=== PATIENT | male | born 1945 | race Caucasian/White ===

== ENCOUNTER → 2025-03-24 09:57 | Outpatient (REF) | payer OTHER, MEDICARE, SELFPAY ==
[2025-03-24 11:10] LABS: Hematocrit 24.6 % (39.0-52.0); Hemoglobin 7.8 g/dL (13.0-18.0); Mean Corp Hgb Conc. 31.7 g/dL (33.0-37.0); Mean Corpuscular Volume 104.7 fL (80.0-94.0); Platelet Count 257 10^3/uL (130-400); Red Cell Dist. Width 14.6 % (11.5-14.5)
[2025-03-24 11:53] LABS: ALT (SGPT) 16 U/L (0-50); AST (SGOT) 28 U/L (17-59); Albumin 1.7 g/dl (3.5-5.0); Alkaline Phosphatase 117 U/L (38-126); Blood Urea Nitrogen 9 mg/dl (9-20); Calcium 7.5 mg/dl (8.4-10.2); Carbon Dioxide 25 mmol/L (22-30); Chloride 106 mmol/L (98-107); Glucose 70 mg/dl (70-99); Potassium 4.1 mmol/L (3.5-5.1); Sodium 131 mmol/L (135-145); Total Protein 4.5 g/dl (6.3-8.2); eGFR > 60.00
[2025-03-24 16:29] LABS: Magnesium 1.7 mg/dl (1.6-2.3)
== END ==
LOC: OLABWHC 09:57
PROVIDERS: ATTENDING PHYSICIAN Family Medicine
DX: G93.41 Metabolic encephalopathy (principal); E83.42 Hypomagnesemia
CPT/HCPCS: 36415; 80053; 83735; 85027

== ENCOUNTER 2025-03-24 23:51 | Emergency (ER) | payer MEDICARE, SELFPAY ==
--- NOTE | 2025-03-25 00:42 | ED.GENMED ---
History of Present Illness
General
Chief Complaint: Catheter/Tube Problem
Source: patient and skilled nursing
Exam Limitations: dementia
Time Seen by Provider: 03/25/25 00:00
Nursing documentation reviewed up to this point in time: agreed with
History of Present Illness
History of Present Illness:
80-year-old male past medical history of dementia, hypertension lipidemia chronic urinary retention with chronic Hammer in place presenting to the emergency department today after his Hammer was pulled out of place. He denies any additional concerns.
No additional concerns specifically from the nursing facility.
Review of Systems
Review of Systems
Allergies reviewed?: Yes
All Other Systems: ROS reviewed and negative except as documented in HPI and ROS
Phy Exam
Physical Exam
Physical Exam:
GENERAL: Alert , in no apparent distress
EYE: Normal appearance of the eyes.
NECK: No visible abnormality, trachea midline
ENT: No visible abnormalities mmm.
LUNGS: no acute respiratory distress
Abdomen: No pain to palpation
NEUROLOGICAL: Alert and oriented, no focal neuro deficits
SKIN: Warm and dry, skin intact.
MUSCULOSKELETAL: Moving all extremities normally
Course
Orders/Labs/Results
Orders:
Orders
03/25/25 00:19
Lidocaine 2% [Lidocaine Uro-Jet 2%] 1 syringe .ROUTE .[facility]
Vital Signs
Initial and Last Documented VS:
Initial Vital Signs
Temp Pulse Resp Pulse Ox
98.0 F 102 20 95
03/24/25 23:54 03/24/25 23:54 03/24/25 23:54 03/24/25 23:54
Last Documented Vital Signs
Temp Pulse Resp Pulse Ox
98.0 F 102 20 95
03/24/25 23:54 03/24/25 23:54 03/24/25 23:54 03/25/25 00:43
Procedures
Urinary Catheter
Procedure completed by: Myself
Type of urinary catheter: indwelling catheter
Catheter size (vietnamese): 14
Urine description: yellow
Urine output (ml): 200
MDM/Problems Addressed
MDM/Problems Addressed:
80-year-old male presenting to the emergency department after pulling out his chronic Hammer catheter at his nursing facility. He denies any additional concerns. This was reinserted here. Patient stable for discharge.
*Pulse Oximetry
SaO2: 95
Oxygen Mode of Delivery: Room air
Patient hypoxic: no (95)
*Critical Care Note
Total Time (30-74mins, 75-104mins- exclusive of procedures): Not Applicable
ED Attending Note
-
Portions of this chart may have been created with voice recognition software.� Occasional wrong word or��sound alike� substitutions may have occurred due to the inherent limitations of voice recognition software.
Discharge Plan
Departure
Patient Disposition: Group Home/SNF
Date of Disposition: 03/25/25
Time of Disposition: 01:04
Condition: Good
Covid-19: Not Applicable
Discharge Problem:
Dislodged Hammer catheter
Instructions: How to Care for Your Hammer Catheter, Male
Referrals:
Alin Felipe MD [Family Provider, Family Practice]
Activity Restrictions/Additional Instructions:
You came to the emergency department today after your Hammer catheter dislodged. This was replaced. Please follow closely with urology. Return for any worsening, new or concerning symptoms.
Interventions
Interventions:
*Risk Screen - Suicide Last Done: 03/25/25 00:02
*General Assessment Last Done: 03/25/25 00:02
*Neglect/Abuse Screening Last Done: 03/25/25 00:02
*ED- Fall Risk Assessment Last Done: 03/25/25 00:02
*ED COVID-19 Vaccine History Last Done: 03/25/25 00:02
Discharge Date and Time
Print Language: MACEDONIAN
[2025-03-25 01:13] VITALS: BP 126/92
== END 2025-03-25 03:28 ==
LOC: EMR 23:51
PROVIDERS: EMERGENCY PHYSICIAN Student in an Organized Health Care Education/Training Program; FAMILY PHYSICIAN Family Medicine
DX: T83.021A Displacement of indwelling urethral catheter, initial encounter (principal); X58.XXXA Exposure to other specified factors, initial encounter; F03.90 Unspecified dementia, unspecified severity, without behavioral disturbance, psychotic disturbance, mood disturbance, and anxiety; I10 Essential (primary) hypertension; E78.5 Hyperlipidemia, unspecified
CPT/HCPCS: 51702; 99283

== ENCOUNTER 2025-03-28 22:26 | Emergency (ER) | payer MEDICARE, SELFPAY ==
[2025-03-28 22:37] VITALS: BP 124/74
[2025-03-29 00:14] VITALS: BP 115/70
--- NOTE | 2025-03-29 00:31 | ED.GENMED ---
History of Present Illness
General
Chief Complaint: Catheter/Tube Problem
Source: patient and family
Exam Limitations: none
Time Seen by Provider: 03/29/25 00:03
History of Present Illness
History of Present Illness:
Patient slid out of a chair catching his catheter. The Hammer out. History of chronic Hammer placement. Some increased right knee pain. Is in rehabitation for the same. No other trauma. No head injury.
Past History
Past History
ED Past Medical History: HTN, Hypercholesterolemia and Other (Metabolic encephalopathy)
Review of Systems
Review of Systems
All Other Systems: Not applicable
Phy Exam
Physical Exam
Physical Exam:
TRAUMA EXAM:
VITAL SIGNS: Vital signs reviewed, cooperative
DISTRESS: No active disease
EYES: Pupils reactive, no orbital trauma
NOSE: No deformity or epistaxis
FACE AND SCALP: No scalp or facial trauma
NECK: Supple nontender
RESPIRATORY: No distress, breath sounds normal, no tender chest wall
: Small amount of blood from the urethra. Some scrotal edema
CARDIAC: No murmur, pulses equal and strong
SKIN: Skin intact no bleeding, color normal
EXTREMITIES: Mild tenderness to right knee and distal femur. No pain with hip rotation. All other extremities negative. Edema to the hands and legs chronically.
NEUROLOGICAL: Alert, oriented, no motor deficits
PSYCH: Mood affect normal
Course
Orders/Labs/Results
Orders:
Orders
03/29/25 00:30
Hammer Placement- Treatment ONCE
Reason for insertion: Chronic Hammer on Admit
Femur, Right 2 View [CR Femur - Right Min 2 Vw] Urgent
Comment:
Reason For Exam: Trauma
Vital Signs
Initial and Last Documented VS:
Initial Vital Signs
Temp Pulse Resp BP Pulse Ox
97 F 104 20 124/74 98
03/28/25 22:37 03/28/25 22:37 03/28/25 22:37 03/28/25 22:37 03/28/25 22:37
Last Documented Vital Signs
Temp Pulse Resp BP Pulse Ox
97 F 82 20 115/70 100
03/28/25 22:37 03/29/25 00:25 03/28/25 22:37 03/29/25 00:14 03/29/25 00:33
MDM/Problems Addressed
Differential Diagnosis Includes:
Catheter dislodgment. Needs to be replaced. No significant trauma. Does have some increased right distal femur and knee pain. Will x-ray this area. Has chronic edema but this is not new and is being managed as an outpatient. No indication for
lab testing at this time
*Radiology
Radiology exam reviewed: preliminary read by ED provider (Negative x-ray)
*Pulse Oximetry
SaO2: 100
Oxygen Mode of Delivery: Room air
Patient hypoxic: no
*Critical Care Note
Total Time (30-74mins, 75-104mins- exclusive of procedures): Not Applicable
Update Note
Update Note:
Stable for discharge. No acute significant trauma. Hammer replaced.
ED Attending Note
-
Portions of this chart may have been created with voice recognition software.� Occasional wrong word or��sound alike� substitutions may have occurred due to the inherent limitations of voice recognition software.
Discharge Plan
Departure
Patient Disposition: Home (Routine Discharge)
Date of Disposition: 03/29/25
Time of Disposition: 01:44
Patient with high blood pressure during this ER visit?: Yes
Discharge Problem:
Dislodged Hammer catheter, Acute on chronic right knee pain
Instructions: How to Care for Your Hammer Catheter, Male, BLOOD PRESSURE
Referrals:
Alin Felipe MD [Family Provider, Family Practice] - Follow up in 2-3 days
Interventions
Interventions:
*General Assessment Last Done: 03/29/25 00:12
*Neglect/Abuse Screening Last Done: 03/29/25 00:12
*ED- Fall Risk Assessment Last Done: 03/29/25 00:12
*ED COVID-19 Vaccine History Last Done: 03/29/25 00:12
HM-Zxrswg-Yapcaflrmt Assessment Last Done: 03/29/25 00:12
ED-Male Genitourinary Assessment Last Done: 03/29/25 00:12
Discharge Date and Time
Print Language: MONTENEGRIN
== END 2025-03-29 09:17 | disposition home or self-care (01) ==
LOC: EMR 22:26
PROVIDERS: EMERGENCY PHYSICIAN Emergency Medicine; FAMILY PHYSICIAN Family Medicine
DX: T83.021A Displacement of indwelling urethral catheter, initial encounter (principal); X58.XXXA Exposure to other specified factors, initial encounter; I10 Essential (primary) hypertension; E78.00 Pure hypercholesterolemia, unspecified; M25.561 Pain in right knee; G89.29 Other chronic pain
CPT/HCPCS: 51702; 99283; 73552

== ENCOUNTER → 2025-03-30 11:37 | Outpatient (REF) | payer OTHER, MEDICARE, SELFPAY ==
[2025-03-30 12:38] LABS: Hematocrit 27.9 % (39.0-52.0); Hemoglobin 9.3 g/dL (13.0-18.0); Mean Corp Hgb Conc. 33.3 g/dL (33.0-37.0); Mean Corpuscular Volume 100.4 fL (80.0-94.0); Platelet Count 239 10^3/uL (130-400); Red Cell Dist. Width 14.0 % (11.5-14.5)
[2025-03-30 13:38] LABS: ALT (SGPT) 17 U/L (0-50); AST (SGOT) 30 U/L (17-59); Albumin 2.0 g/dl (3.5-5.0); Alkaline Phosphatase 128 U/L (38-126); Blood Urea Nitrogen 7 mg/dl (9-20); Calcium 7.3 mg/dl (8.4-10.2); Carbon Dioxide 32 mmol/L (22-30); Chloride 96 mmol/L (98-107); Glucose 93 mg/dl (70-99); Magnesium 1.5 mg/dl (1.6-2.3); Potassium 2.6 mmol/L (3.5-5.1); Sodium 130 mmol/L (135-145); Total Protein 5.0 g/dl (6.3-8.2); eGFR > 60.00
== END ==
LOC: OLABWHC 11:37
PROVIDERS: ATTENDING PHYSICIAN Family Medicine
DX: I10 Essential (primary) hypertension (principal); A41.9 Sepsis, unspecified organism; E83.42 Hypomagnesemia
CPT/HCPCS: 36415; 80053; 83735; 83880; 85027

== ENCOUNTER → 2025-04-04 11:37 | Outpatient (REF) | payer MEDICARE, SELFPAY ==
[2025-04-04 13:05] LABS: Blood Urea Nitrogen 12 mg/dl (9-20); Calcium 7.4 mg/dl (8.4-10.2); Carbon Dioxide 30 mmol/L (22-30); Chloride 101 mmol/L (98-107); Glucose 92 mg/dl (70-99); Potassium 3.7 mmol/L (3.5-5.1); Sodium 130 mmol/L (135-145); eGFR > 60.00
== END ==
LOC: OLABWHC 11:37
PROVIDERS: ATTENDING PHYSICIAN Family Medicine
DX: G93.41 Metabolic encephalopathy (principal)
CPT/HCPCS: 36415; 80048